=== PATIENT | female | born 1965 | race African-American/Black ===

== ENCOUNTER 2016-03-12 15:57 | Outpatient (CLI) | payer MEDICARE, OTHER ==
[2015-08-17 15:29] VITALS: BP 154/90
== END 2016-03-12 16:00 ==
LOC: LAB 15:57
PROVIDERS: ATTEND Family Medicine
DX: E03.9 Hypothyroidism, unspecified (principal)
CPT/HCPCS: 36415; 84443

== ENCOUNTER 2016-04-13 02:28 | Emergency (ER) | payer MEDICARE, OTHER ==
--- NOTE | 2016-04-13 02:58 | ED Physician Documentation ---
Syncope/Near Syncope - HISTORIAN Historian: patient - HPI Stated Complaint: syncopal episode Chief Complaint: Syncope Additional Information[place] Not the first time this has happened to her. Negative workup prior. [place] flushed, then awoke om floor, passed gas, later vomited a little water they had just gave her, and then started feeling back to normal, but came by EMS anyway. Witnessed: Yes Witnessed By: family, friend, bystander Position at Time of Episode: standing Symptoms Prior to Episode: other (flushed/warm) Character of Events(s): became unresponsive, collapsed Duration of Loss of Consciousness: minute Last known Well Date: 04/13/16 Symptoms after Event: denies: confused after event, incontinent of urine, incontinent of stool, breathing shallow, breathing stopped, lost pulse Location of Injury: none Associated Symptoms: feels back to normal (hypotension, then and now, but improving) Further Comments: no - ROS CONST: recent illness EYES/ENT: none GI/: denies: diarrhea LNMP: denies: , irregualar periods MS/SKIN/LYMPH: denies: joint pain NEURO/PSYCH: denies: confusion - PAST HX Cardiac Disease: none PE Risk Factors: none Other History: hypertension Surgeries/Procedures: none Immunizations: UTD Allergies/Adverse Reactions: Allergies Allergy/AdvReac Type Severity Reaction Status Date / Time lactose [Lactose] AdvReac Mild Diarrhea Verified 04/13/16 02:45 Home Medications: Ambulatory Orders Medication Instructions Recorded Fluticasone/Salmeterol [Advair 1 puff INH BID 08/17/15 250-50 Diskus] Losartan/Hydrochlorothiazide 1 tab PO DAILY 08/17/15 [Hyzaar 100-25 Tablet] - SOCIAL HX Smoking History: non-smoker Drug Use: none - FAMILY HX Family History: none - VITAL SIGNS Vital Signs: Vital Signs Temp Pulse Resp BP Pulse Ox 97.9 F 70 14 98/49 98 04/13/16 02:29 04/13/16 02:47 04/13/16 02:29 04/13/16 02:47 04/13/16 04:00 - REVIEWED ASSESSMENTS Nursing Assessment Reviewed: Yes Vitals Reviewed: Yes ED Results Lab/Radiology - Lab Results Lab Results: Lab Results 04/13/16 04/13/16 04/13/16 03:00 03:00 03:00 WBC RBC Hgb Hct MCV MCH MCHC RDW Plt Count Neut % (Auto) Lymph % (Auto) [place] % (Auto) Eos % (Auto) Baso % (Auto) Neut # Lymph # [place] # Eos # Baso # Reactive Lymphs % Reactive Lymphs # Sodium 137 mmol/L mmol/L (136-145) Potassium 4.3 mmol/L mmol/L (3.5-5.0) Chloride 112 mmol/L H mmol/L (98-110) Carbon Dioxide 27 mmol/L mmol/L (20-32) BUN 15 mg/dL mg/dL (10-26) Creatinine 0.6 mg/dL mg/dL (0.4-1.5) Estimated Creat Clear 300 Est GFR ( Amer) > 60 (60 - ) Est GFR (Non-Af Amer) > 60 (60 - ) Glucose 135 mg/dL H mg/dL (70-99) Calcium 9.4 mg/dL mg/dL (8.5-10.5) Total Bilirubin 0.4 mg/dL mg/dL (0.2-1.2) AST 20 U/L U/L (0-41) ALT 23 U/L U/L (0-45) Alkaline Phosphatase 74 U/L U/L (46-116) Creatine Kinase 34 U/L U/L (0-225) CK-MB (CK-2) < 0.3 ng/mL L ng/mL (0.3-5.0) Troponin I < 0.03 ng/mL L ng/mL (0.03-0.06) Total Protein 8.3 g/dL g/dL (6.0-8.5) Albumin 4.2 g/dL g/dL (3.0-5.5) 04/13/16 03:00 WBC 4.00 K/ul K/ul (4.00-12.00) RBC 4.53 M/ul M/ul (3.90-5.20) Hgb 12.7 g/dL g/dL (12.0-16.0) Hct 41.3 % % (34.5-46.5) MCV 91.1 fl fl (80.0-100.0) MCH 28.0 pg pg (28.0-34.0) MCHC 30.7 g/dL g/dL (30.0-36.0) RDW 13.7 % % (11.3-14.3) Plt Count 319 K/mm3 K/mm3 (130-400) Neut % (Auto) 52.2 % % (39.0-79.0) Lymph % (Auto) 37.6 % % (16.0-50.0) [place] % (Auto) 4.1 % % (0.0-11.0) Eos % (Auto) 3.4 % % (0.0-6.8) Baso % (Auto) 0.3 (0.0-1.5) Neut # 2.1 # k/uL # k/uL (1.4-7.7) Lymph # 1.5 # k/uL # k/uL (0.6-4.0) [place] # 0.2 # k/uL # k/uL (0.0-0.9) Eos # 0.1 # k/uL # k/uL (0.0-0.6) Baso # 0.0 # k/uL # k/uL (0.0-0.5) Reactive Lymphs % 2.5 % % (0.0-5.0) Reactive Lymphs # 0.1 # k/uL # k/uL (0.0-0.8) Sodium Potassium Chloride Carbon Dioxide BUN Creatinine Estimated Creat Clear Est GFR ( Amer) Est GFR (Non-Af Amer) Glucose Calcium Total Bilirubin AST ALT Alkaline Phosphatase Creatine Kinase CK-MB (CK-2) Troponin I Total Protein Albumin all orthostatics positive - Orders Orders: ED Orders Category Date Time Status Assess pulse oximetry Q1H Care 04/13/16 02:52 Active Orthostatics 1T Care 04/13/16 02:[address] Saline Lock/IV Now Care 04/13/16 02:52 Active CHEST P.A.&LAT 2 VIEWS [RAD] Stat Exams 04/13/16 02:[address] BRAIN W/O CONTRAST Stat Exams 04/13/16 02:54 Completed CBC/PLATELET/DIFF Routine Lab 04/13/16 03:00 Completed CMP Routine Lab 04/13/16 03:00 Completed CREATINE KINASE MB Routine Lab 04/13/16 03:00 Completed TROPONIN I (cTnI) Stat Lab 04/13/16 03:00 Completed URINALYSIS Routine Lab 04/13/16 Ordered ck [CREATINE KINASE] Routine Lab 04/13/16 03:00 Completed 0.9 % Sodium Chloride [Normal Saline] 1,000 ml Med 04/13/16 03:00 Ordered IV Q10H Ondansetron HCl Rapdis [Zofran Odt] Med 04/13/16 03:22 Discontinued 4 mg .ROUTE .STK-MED ONE Ondansetron HCl Rapdis [Zofran Odt] Med 04/13/16 04:13 Once 8 mg PO NOW ONE EKG WITH COMPARISON Stat Ther 04/13/16 Ordered Syncope Physical Exam - Physical Exam General Appearance: no acute distress, alert EENT: nml eye inspection, PERRL. No: tenderness, swelling, ecchymosis Neck/Back: neck supple, non-tender, no carotid bruit. No: carotid bruit Respiratory: no resp distress, chest non-tender, breath sounds normal CVS: reg rate & rhythm, heart sounds normal, no murmur Abdomen: non-tender Skin: warm/dry, normal color Extremities: non-tender, no evidence of injury, no edema - Neuro/Psych Higher Functions: alert, oriented x3, no evidence of acute CVA, mood/affect nml Cranial Nerves: nml as tested Cerebellar: nml as tested Sensorimotor: nml sensory response Discharge Clincal Impression: Vaso vagal episode, Orthostatic hypotension Syncope Qualifiers: Syncope type: vasovagal syncope Qualified Code(s): R55 - Syncope and collapse Home Medications: Ambulatory Orders Fluticasone/Salmeterol [Advair 250-50 Diskus] 1 puff INH BID 08/17/15 Losartan/Hydrochlorothiazide [Hyzaar 100-25 Tablet] 1 tab PO DAILY 08/17/15 Condition: Good Disposition: 01 HOME, SELF-CARE Decision to Admit: NO Date of Decison to Admit: 04/13/16 Decision Time: 04:15
[2016-04-13] MEDS: ONDANSETRON HCL 4 MG TAB.RAPDIS PO ONE ×2 (03:15)
[2016-04-13] MEDS ORDERED: ONDANSETRON HCL 4 MG TAB.RAPDIS ONE (03:22)
[2016-04-13] MEDS: 0.9 % SODIUM CHLORIDE 1,000 ML IV SCH (03:33)
[2016-04-13 03:36] LABS: BASOPHILS % 0.3 (0.0-1.5); EOSINOPHILS % 3.4 % (0.0-6.8); LYMPHOCYTES # 1.5 # k/uL (0.6-4.0); MONOCYTES # 0.2 # k/uL (0.0-0.9); MONOCYTES % 4.1 % (0.0-11.0); NEUTROPHILS # 2.1 # k/uL (1.4-7.7)
[2016-04-13 03:54] LABS: eGFR (African) > 60; eGFR (Non-African) > 60
--- NOTE | 2016-04-13 04:01 | Diagnostic Imaging Report ---
VERNA SCHROEDER [facility] [address] [facility] [address] [address] Report Submission Date: Apr 13, 2016 3:28:22 AM SUPPLEMENTAL NURSE Patient Study Name: MARY ARZOLA Date: Apr 13, 2016 3:15:13 AM SUPPLEMENTAL NURSE Modality Type: CR Gender: F Description: CHEST : 63 Institution: [facility] Physician: VERNA SCHROEDER Chest, 2 view History: PT STATED SHE FELT HOT AND PASSED OUT. Findings: The heart size is normal. The lungs are clear. There is no pleural effusion or pneumothorax identified. The osseous structures are normal. Impression: 1. No acute pulmonary disease. Electronically signed on Apr 13, 2016 3:28:22 AM SUPPLEMENTAL NURSE by: Eran TAMEZ
--- NOTE | 2016-04-13 04:01 | Diagnostic Imaging Report ---
VERNA SCHROEDER [facility] [address] [facility] [address] [place], [place]. [address] Report Submission Date: Apr 13, 2016 3:28:07 AM ELECTRONIC INTELLIGENCE OFFICER Patient Study Name: MARY ARZOLA Date: Apr 13, 2016 3:05:35 AM ELECTRONIC INTELLIGENCE OFFICER Modality Type: CT\SR Gender: F Description: CT BRAIN W/O CONTRAST : 63 Institution: [facility] Physician: VERNA SCHROEDER CT HEAD WO CONTRAST History: Syncope. Technique: Standard noncontrast CT was performed with contiguous axial images acquired from skull base to vertex. Findings: There is no acute extra-axial fluid collection. Ventricles are of normal size, shape, and morphology. No mass effect or midline shift is present. No evidence of acute hemorrhage. The owen-white matter differentiation is normal. The visualized portions of the orbits, and paranasal sinuses, and mastoids are normal. No fractures are identified. Impression: 1. Normal non contrast brain CT. Electronically signed on Apr 13, 2016 3:28:07 AM ELECTRONIC INTELLIGENCE OFFICER by: Eran Kruger [facility]
[2016-04-13 04:41] VITALS: BP 129/67
== END 2016-04-13 04:30 | disposition home or self-care (01) ==
LOC: ED 02:28
DX: R55 Syncope and collapse (principal)
CPT/HCPCS: 70450; 71020; 80053; 82550; 82553; 84484; 85025; 93005; A9270; J7030; 99283; S1016

== ENCOUNTER 2017-09-09 11:50 | Outpatient (CLI) | payer MEDICARE, OTHER ==
[2017-09-09 12:16] LABS: BASOPHILS % 0.4 (0.0-1.5); EOSINOPHILS % 7.5 % (0.0-6.8); MEAN CORPUSCULAR HEMOGLOBIN 28.1 pg (28.0-34.0); MEAN CORPUSCULAR VOLUME 89.4 fl (80.0-100.0); MONOCYTES % 4.8 % (0.0-11.0); NEUTROPHILS # 1.9 # k/uL (1.4-7.7)
[2017-09-09 12:25] LABS: eGFR (African) > 60; eGFR (Non-African) > 60
--- NOTE | 2017-09-09 17:21 | Diagnostic Imaging Report ---
[facility] [address] [facility] [address] Report Submission Date: Sep 09, 2017 1:08:16 PM CDT Patient Study Name: MARY ARZOLA Date: Sep 09, 2017 12:04:45 PM CDT Modality Type: DX Gender: F Description: CHEST : 63 Institution: [facility] Physician: PURVI HEAD PA AND LATERAL CHEST HISTORY: Cough COMPARISON: None PA and Lateral Chest dated September 09, 2017 demonstrates a normal cardiomediastinal silhouette. Pulmonary vascularity is normal. Lungs are clear. IMPRESSION: NO ACTIVE DISEASE. Electronically signed on Sep 09, 2017 1:08:16 PM CDT by: Britt TAMEZ
== END 2017-09-09 11:52 ==
LOC: LAB 11:50
PROVIDERS: ATTEND Nurse Practitioner Family
DX: R60.1 Generalized edema (principal); I10 Essential (primary) hypertension
CPT/HCPCS: 36415; 71046; 80053; 83880; 84439; 84443; 84481; 85025

== ENCOUNTER 2017-10-16 11:40 | Emergency (ER) | payer MEDICARE, OTHER ==
[2017-10-16] MEDS ORDERED: IPRATROPIUM/ALBUTEROL SULFATE 3 ML AMPUL.NEB NEB ONE ×2 (11:49→11:52)
[2017-10-16] MEDS ORDERED: methylPREDNISolone SOD SUCC 125 MG/2 ML VIAL IVP ONE (11:52)
--- NOTE | 2017-10-16 11:52 | ED Physician Documentation ---
Asthma - HISTORIAN Historian: patient - HPI Stated Complaint: Asthma Chief Complaint: Asthma Onset: days ago (2) Duration: continues in ED Initiating Event: upper respiratory illness, exercise, other (she is not taking her b/p med ) Associated Symptoms:: sweating, trouble breathing, shortness of breath, productive cough, chest tightness. denies: fever, hurts to breath, bloody sputum, chest discomfort, chest pain, chest pressure, pressure Current Asthma Therapy: inhaled nebulizer, albuterol inhaler Further Comments: yes (She reports two days ago she started to notice chest congestion so she was going to use her ventolin more frequently (she reports she might usually use it once a week) She has Advair (She does use this regularly) She does have HTN (she reports she had tried several meds and did not do well so she is not sure what she is supposed to be taking) She has had increased shortness of breath this am. She is coughing although not productive- she has only tried her meds at home. She has no sick contacts. No chest pain. No dizziness. No other complaints) - ROS CONST: no problems EYES/ENT: runny nose. denies: eye itching, sore throat CVS: denies: heart racing, palpitations GI/: denies: abdominal pain, vomiting, nausea MS/SKIN/LYMPH: denies: rash NEURO/PSYCH: denies: headache, dizziness - PAST HX Asthma: occasional attacks Lung Disease: asthma Other History: hypertension Immunizations: UTD Allergies/Adverse Reactions: Allergies Allergy/AdvReac Type Severity Reaction Status Date / Time lactose [Lactose] AdvReac Mild Diarrhea Verified 10/16/17 11:48 Home Medications: Ambulatory Orders Medication Instructions Recorded Albuterol Sulfate [Ventolin] 1 tab PO DAILY 10/16/17 - SOCIAL HX Smoking History: non-smoker Alcohol Use: none Drug Use: none - FAMILY HX Family History: denies: emphysema, asthma, CAD, PE, DVT - VITAL SIGNS Vital Signs: Vital Signs Temp Pulse Resp BP Pulse Ox 98.4 F 96 H 18 205/95 94 10/16/17 11:40 10/16/17 11:40 10/16/17 11:40 10/16/17 11:40 10/16/17 11:40 - REVIEWED ASSESSMENTS Nursing Assessment Reviewed: Yes Vitals Reviewed: Yes Progress - Progress Progress: 1218: improvement after first treatment per her report DG 1250: states she feels less short on air after treatment DG 1330: denies any increased shortness of air DG 1400: Discussed using a nebulizer machine at home plus med for b/p. She says she has tried and failed many b/p meds DG ED Results Lab/Radiology - Radiology Radiology Impressions: PA and lateral chest History: Short of breath. Asthma. PA and lateral chest dated October 16, 2017 compared with September 09, 2017. The cardiomediastinal silhouette is within normal limits and unchanged. Pulmonary vascularity is normal. There is no confluent infiltrate or pleural effusion. Impression: No active disease. Electronically signed on Oct 16, 2017 12:54:51 PM CDT by: Britt Ahmadi Asthma Physical Exam - EXAM General Appearance: no acute distress, alert EENT: eye inspection normal, ENT inspection normal, no signs of dehydration Respiratory: no resp. distress, breath sounds nml, no pain on inspiration, respiratory distress (mild - 3-4 word sentences with shortness of air ) CVS: reg rate & rhythm, heart sounds normal, equal pulses, no murmur Abdomen: non-tender, no organomegaly, nml bowel sounds Skin: color nml Extremities: non-tender, normal range of motion, no evidence of injury, no edema Neuro/Psych: oriented x3, neuro intact, mood/affect nml, disoriented Discharge Clincal Impression: Asthma Qualifiers: Asthma severity: mild Asthma persistence: unspecified Asthma complication type: unspecified Qualified Code(s): J45.998 - Other asthma Hypertension Qualifiers: Hypertension type: essential hypertension Qualified Code(s): I10 - Essential (primary) hypertension Referrals: Paula Bush MD [Primary Care Provider] - 2 Days Additional Instructions: 1. Clonidine 0.1 mg take 1 by mouth daily 2. Neb machine - using Ipratroprium /Albuterol in machine 1 vial every 6 hours as needed for cough 3. Medrol Dose pack - start 10-17-2017 after 12 pm (noon) 4. Increase fluids 5. Rest 6. Follow up with PCP in 2-4 days 7. Return to ER for any concerns Condition: Stable Disposition: 01 HOME, SELF-CARE Decision to Admit: NO Date of Decison to Admit: 10/16/17 Decision Time: 14:22
[2017-10-16 12:08] LABS: BASOPHILS % 0.3 (0.0-1.5); EOSINOPHILS % 14.5 % (0.0-6.8); MEAN CORPUSCULAR HEMOGLOBIN 27.5 pg (28.0-34.0); MEAN CORPUSCULAR VOLUME 87.8 fl (80.0-100.0); MONOCYTES % 5.6 % (0.0-11.0); NEUTROPHILS # 2.1 # k/uL (1.4-7.7)
[2017-10-16 12:26] LABS: eGFR (Non-African) > 60
[2017-10-16] MEDS ORDERED: BUDESONIDE 0.5MG/2ML AMPUL.NEB NEB ONE (12:37)
[2017-10-16] MEDS ORDERED: BUDESONIDE 0.5MG/2ML AMPUL.NEB NEB SCH (13:00)
[2017-10-16] MEDS ORDERED: CloNIDine HCL 0.1 MG TABLET PO ONE ×2 (13:52→13:54)
[2017-10-16 14:33] VITALS: BP 183/83
--- NOTE | 2017-10-16 19:06 | Diagnostic Imaging Report ---
PURVI HEAD [facility] [address] [facility] [place], [place]. [address] Report Submission Date: Oct 16, 2017 12:54:51 PM CDT Patient Study Name: MARY ARZOLA Date: Oct 16, 2017 12:27:08 PM CDT Modality Type: DX Gender: F Description: CHEST : 63 Institution: [facility] Physician: PURVI EHAD PA and lateral chest History: Short of breath. Asthma. PA and lateral chest dated October 16, 2017 compared with September 09, 2017. The cardiomediastinal silhouette is within normal limits and unchanged. Pulmonary vascularity is normal. There is no confluent infiltrate or pleural effusion. Impression: No active disease. Electronically signed on Oct 16, 2017 12:54:51 PM CDT by: Britt TAMEZ
== END 2017-10-16 14:31 | disposition home or self-care (01) ==
LOC: ED 11:40 → SUPCPDRO 11:40 → ED 14:31
DX: J45.998 Other asthma (principal); I10 Essential (primary) hypertension
CPT/HCPCS: 71046; 80053; 83880; 84484; 85025; J2930; J7626; 94640; 96374; 99284; S1016

== ENCOUNTER 2017-10-31 09:12 | Emergency (ER) | payer MEDICARE, OTHER ==
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
[2017-10-31] MEDS ORDERED: KETOROLAC TROMETHAMINE 60 MG/2 ML VIAL IM ONE (11:48)
[2017-10-31] MEDS ORDERED: DIAZEPAM 5 MG TABLET PO ONE (11:49)
[2017-10-31 12:17] VITALS: BP 156/97
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
== END 2017-10-31 12:15 | disposition home or self-care (01) ==
LOC: ED 09:12
DX: M79.1 Myalgia (principal); V87.7XXA Person injured in collision between other specified motor vehicles (traffic), initial encounter; Y92.9 Unspecified place or not applicable; Y93.9 Activity, unspecified; Y99.9 Unspecified external cause status
CPT/HCPCS: 72040; 72072; J1885; 96372; 99284

== ENCOUNTER 2017-11-04 13:43 | Outpatient (CLI) | payer MEDICARE, OTHER | END 2017-11-04 13:44 | LOC: CARD 13:43 | PROVIDERS: ATTEND Internal Medicine Cardiovascular Disease | DX: I10 Essential (primary) hypertension (principal); E78.5 Hyperlipidemia, unspecified; E66.9 Obesity, unspecified | CPT/HCPCS: G0463 ==

== ENCOUNTER 2018-01-30 18:08 | Emergency (ER) | payer MEDICARE, OTHER ==
--- NOTE | 2018-01-30 18:44 | ED Physician Documentation ---
Lower Extremity Problem - HISTORIAN Historian: patient - HPI Chief Complaint: Lower Extremity Problem Timing: still present Duration: constant Recent Injury: No Quality: pain. denies: swelling, numbness, tingling Exacerbated By: movement Associated Symptoms: denies: chest pain, shortness of breath, rapid heart rate - ROS CONST: no problems - PAST HX Past History: other (HTN asthma OA) Surgeries/Procedures: other (tubal ) - SOCIAL HX Smoking History: non-smoker Alcohol Use: none Drug Use: none - FAMILY HX Family History: none - REVIEWED ASSESSMENTS Nursing Assessment Reviewed: Yes Vitals Reviewed: Yes <Leydi Haile - Last Filed: 01/30/18 19:13> <Danielle Vuong - Last Filed: 01/30/18 20:39> - HPI Additional Information: intro self as [employer]. pt presents to the ED via POV c/o left knee pain 10/10 worse today. pain is worse with movement. denies injury or other complaints/symptoms. Hx of Right knee chronic pain and steroid injections. uses a cane to ambulate at baseline. Able to ambulate to room with cane without difficulty. pt denies current chest pain, dyspnea, syncope/near syncope, headache, dizziness, visual disturbances, n/v/d, fever/chills, rash, sick contacts, dysuria, trauma. melena or hematochezia, bleeding or easy bruising, change in bowel or bladder function, no recent weight loss/gain, anxiety or depression. ROS Negative unless otherwise specified. (Leydi Haile) - PAST HX Allergies/Adverse Reactions: Allergies Allergy/AdvReac Type Severity Reaction Status Date / Time lactose [Lactose] AdvReac Mild Diarrhea Verified 01/30/18 19:34 Lactose Allergy Mild Diarrhea Uncoded 01/09/12 18:50 Home Medications: Ambulatory Orders Medication Instructions Recorded Albuterol Sulfate [Ventolin] 1 tab PO DAILY 10/16/17 - VITAL SIGNS Vital Signs: Vital Signs Temp Pulse Resp BP Pulse Ox 98.4 F 81 18 149/86 98 01/30/18 18:28 01/30/18 20:16 01/30/18 20:16 01/30/18 20:16 01/30/18 20:16 Progress <Leydi Haile - Last Filed: 01/30/18 19:13> <Danielle Vuong - Last Filed: 01/30/18 20:39> - Progress Progress: care/report to [facility]. (Henrry Haileher) 1915: care assumed DG 1924: assessment complete - she has pain in left knee and up her inner thigh per report after climbing knee first in her bed. States this started approx one week ago with increased pain noted 2 days ago. She states she has tried some OTC meds with mild relief and the pain is increased with going from sitting to standing or a walking pressure. She denies any warmth or other pain complaints. She has had knee pains in the past. She has no further work up of the knees. She is obese. Leg is without skin color change. No swelling. She has full ROM increase pain with leg left or standing. Pulses + cap refill + No redness or warmth noted on the anterior or posterior portion of the knee. No swelling in leg or foot. DG 1999: results and plan discussed with pt she is agreeable DG (Danielle Vuong) ED Results Lab/Radiology <Danielle Vuong - Last Filed: 01/30/18 20:39> - Radiology Radiology Impressions: Left knee three views History: Knee pain without injury Findings: Moderate 3 compartment osteoarthritis is most advanced medially. O besity and a moderate suprapatellar joint effusion are observed. There is no fracture or dislocation. Impression: 1. Moderate 3 compartment osteoarthritis. 2. Moderate joint effusion. Electronically signed on Jan 30, 2018 7:49:18 PM STAFF REPORTER by: Erick Ham (Danielle Vuong) - Orders Orders: ED Orders Category Date Time Status KNEE 3 VIEWS [RAD] Stat Exams 01/30/18 Ordered Ketorolac Tromethamine [Toradol] Med 01/30/18 19:51 Discontinued 60 mg IM NOW ONE methylPREDNISolone ACETATE [Depo-Medrol] Med 01/30/18 19:51 Discontinued 80 mg IM NOW ONE Lower Extremity Problem - EXAM General Appearance: no distress Hips: bilateral hip: non-tender, normal inspection, normal range of motion, no evidence of injury Legs: bilateral: non-tender, normal inspection, normal range of motion, no evidence of injury Knees: right: non-tender, normal inspection, normal range of motion, left: soft tissue tenderness, bilateral: no evidence of injury Ankle: bilateral: non-tender, normal inspection, normal range of motion, no evidence of injury Foot: bilateral foot: non-tender, normal inspection, normal range of motion Neuro/Tendon: normal sensation, normal motor functions, normal tendon functions, no evidence tendon injury EENT: eye inspection normal, pharynx normal, no signs of dehydration RESPIRATORY: no resp distress CVS: equal pulses JOINT: joints nml, nml ROM VASCULAR: no vascular compromise, pulses full/equal NEURO/PSYCH: oriented X3, motor nml, sensation nml <Leydi Haile - Last Filed: 01/30/18 19:13> Discharge <Leydi Haile - Last Filed: 01/30/18 19:13> Decision to Admit: NO Date of Decison to Admit: 01/30/18 Decision Time: 20:06 <Danielle Vuong - Last Filed: 01/30/18 20:39> Clincal Impression: Left knee pain Qualifiers: Chronicity: acute Qualified Code(s): M25.562 - Pain in left knee Referrals: Paula Bush MD [Primary Care Provider] - 2 Days Comments: 1. Keep ice to area on left knee 2. Elevate 3. OTC pain meds as needed for pain 4. See PCP in 2-4 days 5. Return to ER for any concerns (Danielle Vuong) Condition: Stable Disposition: 01 HOME, SELF-CARE
[2018-01-30] MEDS: methylPREDNISolone ACETATE 80 MG/ML VIAL IM ONE (20:08)
[2018-01-30] MEDS: KETOROLAC TROMETHAMINE 60 MG/2 ML VIAL IM ONE (20:08)
[2018-01-30 20:20] VITALS: BP 149/86
--- NOTE | 2018-01-31 07:19 | Diagnostic Imaging Report ---
PURVI HEAD [facility] [address] [facility] [address] [place], [place]. [address] Report Submission Date: Jan 30, 2018 7:49:18 PM DIE REPAIRER STAMPING Patient Study Name: MARY ARZOLA Date: Jan 30, 2018 7:20:40 PM DIE REPAIRER STAMPING Modality Type: DX Gender: F Description: LOWER EXTREMITY : 63 Institution: [facility] Physician: PURVI HEAD Left knee three views History: Knee pain without injury Findings: Moderate 3 compartment osteoarthritis is most advanced medially. Obesity and a moderate suprapatellar joint effusion are observed. There is no fracture or dislocation. Impression: 1. Moderate 3 compartment osteoarthritis. 2. Moderate joint effusion. Electronically signed on Jan 30, 2018 7:49:18 PM DIE REPAIRER STAMPING by: Erick TAMEZ
== END 2018-01-30 20:15 | disposition home or self-care (01) ==
LOC: ED 18:08
DX: M25.562 Pain in left knee (principal)
CPT/HCPCS: 73562; 96372; 99282; 99284; J1040; J1885

== ENCOUNTER 2018-11-05 19:32 | Emergency (ER) | payer MEDICARE, OTHER ==
--- NOTE | 2018-11-05 19:53 | ED Physician Documentation ---
General Adult - HISTORIAN Historian: patient - HPI Stated Complaint: might be constipated Chief Complaint: General Adult Onset: other (on and off all the time ) Timing: better Severity: mild Further Comments: yes (She reports for a long time "just not feeling like myself (she is tearful) something is off" she states she has been on and off b/p meds and she tried therapy (her issues are all over the place on discussion) When we discussed again she states tonight she was in due to feeling like just sitting there she had a gas pain and it moves (like it does sometimes) all over her stomach and makes her feel nausea and then she states after she passes the gas she gets better. She does report on toliet at times her arm feels like there is bones in her arm and then after the gas passes the pain is better. She denies any slurred speech. She has had some weakness on and off and they associated with her b/p med. She states she tried to call Dr Bush at about 445 pm and the nurse did not return her call. No one sided weakness) - ROS CONST: no problems - PAST HX Past History: hypertension Immunizations: UTD Allergies/Adverse Reactions: Allergies Allergy/AdvReac Type Severity Reaction Status Date / Time lactose [Lactose] AdvReac Mild Diarrhea Verified 01/30/18 19:34 Lactose Allergy Mild Diarrhea Uncoded 01/09/12 18:50 Home Medications: Ambulatory Orders Medication Instructions Recorded Ranitidine HCl 150 mg PO Q12 #60 tablet 11/05/18 amLODIPine BESYLATE [Norvasc] 1 tab PO DAILY 11/05/18 - SOCIAL HX Smoking History: non-smoker Alcohol Use: none Drug Use: none - FAMILY HX Family History: No - VITAL SIGNS Vital Signs: Vital Signs Temp Pulse Resp BP Pulse Ox 149/86 01/30/18 20:16 - REVIEWED ASSESSMENTS Nursing Assessment Reviewed: Yes Vitals Reviewed: Yes General Adult Physical Exam - PHYSICAL EXAM GENERAL APPEARANCE: no distress EENT: eye inspection normal, ENT inspection normal, pharynx normal, no signs of dehydration, SRAVANI NECK: normal inspection RESPIRATORY: no resp distress, chest non-tender, breath sounds normal CVS: reg rate & rhythm, heart sounds normal, equal pulses ABDOMEN: soft, normal bowel sounds, no distension, non-tender BACK: normal inspection SKIN: warm/dry, normal color EXTREMITIES: non-tender, normal range of motion, no evidence of injury, no edema NEURO: oriented X3 Discharge Clincal Impression: Gas bloat syndrome Referrals: Paula Bush MD [Primary Care Provider] - 2 Days Comments: 1. Zantac 150 mg take 1 by mouth twice daily 2. Increase fluids 3. Follow up with PCP 4. Return to ER for any increasing concerns Condition: Stable Disposition: 01 HOME, SELF-CARE Decision to Admit: NO Date of Decison to Admit: 11/05/18 Decision Time: 20:51
[2018-11-05] MEDS: MAG HYDROX/ALUMINUM HYD/SIMETH 30 ML, Lidocaine 2% Viscous 15 ML PO ONE ×2 (20:40)
--- NOTE | 2018-11-05 20:46 | Diagnostic Imaging Report ---
PURVI [facility] [address] [facility] [address] [place], [place]. [address] Report Submission Date: Nov 05, 2018 8:19:35 PM CDT Patient Study Name: AMRY ARZOLA Date: Nov 05, 2018 7:52:41 PM CDT Modality Type: DX Gender: F Description: ABD SERIES PA CHEST : 63 Institution: [facility] Physician: PURVI HEAD Abdomen series and PA chest History: Constipation and nausea Findings: A single view of the chest reveals mild bilateral predominantly basilar atelectasis, normal heart size, and normal pulmonary vascularity. Upright and supine abdominal radiographs reveal minimal stool in the rectum. The bowel gas pattern is otherwise normal without obstruction or free air. Lower lumbar spondylosis is observed. Multiple bilateral pelvic calcifications likely represent phleboliths but some are too small to characterize. Impression: 1. Mild bibasilar atelectasis. 2. Normal bowel gas pattern without obstruction, free air, or constipation. 3. Probable pelvic phleboliths. Electronically signed on Nov 05, 2018 8:19:35 PM CDT by: Erick TAMEZ
[2018-11-05 22:03] VITALS: BP 145/85
== END 2018-11-05 22:02 | disposition home or self-care (01) ==
LOC: ED 19:32
DX: R14.0 Abdominal distension (gaseous) (principal)
CPT/HCPCS: 74022; 99282; 99283; A9270

== ENCOUNTER 2019-02-08 15:55 | Outpatient (CLI) | payer MEDICARE, OTHER ==
[2019-02-08 16:47] LABS: BASOPHILS % 0.7 % (0.0-1.5); NEUTROPHILS # 2.7 # k/uL (1.4-7.7)
[2019-02-08 17:05] LABS: A1C 5.1 % (<5.7)
[2019-02-08 17:20] LABS: eGFR (Non-African) > 60
== END 2019-02-08 16:00 ==
LOC: LAB 15:55
PROVIDERS: ATTEND Family Medicine
DX: E55.9 Vitamin D deficiency, unspecified (principal); E03.9 Hypothyroidism, unspecified; R73.9 Hyperglycemia, unspecified
CPT/HCPCS: 36415; 80053; 82306; 83036; 84443; 85025